=== PATIENT | male | born 1975 | race Caucasian/White ===

== ENCOUNTER 2018-09-19 10:39 | Day surgery (SDC) | payer BC ==
[2018-09-18 11:20] VITALS: BMI 29.9
[~2018-09-19 10:39] MED LIST: LACTATED RINGERS 1,000 ML IV SCH; LIDOCAINE 1% 20 ML VIAL (10MG/ML) FOR IV START INTRADERMA PRN
[2018-09-19 11:06] VITALS: TEMP 97.6
[2018-09-19] MEDS ORDERED: PROPOFOL 10 MG/ML 20 ML VIAL IV ONE (11:52)
[2018-09-19] MEDS ORDERED: LIDOCAINE 1% INJ 10MG/ML (20 ML MDV) ONE (11:52)
[2018-09-19] MEDS ORDERED: fentaNYL (PF) 50 MCG/ML 2 ML AMP ONE (11:52)
--- NOTE | 2018-09-19 12:25 | P.PCN ---
Date of Procedure: 09/19/18 Description of Procedure: BRIEF HISTORY: 42-year-old male who presents for outpatient EGD. Previously seen in the office the patient was reporting intermittent episodes of dysphagia. The patient has reported intermittent episodes of solid food dysphagia over the past few years which she feels improved when he chews his food more thoroughly. No episodes of esophageal foreign body. He had been on Protonix daily. No reported reflux, throat clearing or sore taste in mouth. No history of ALLERGIES. No history of asthma. No nausea or vomiting or familial history of esophageal malignancy. No hematochezia or melena and he reports 2-3 formed bowel movements daily. The patient had an x-ray esophagram which was significant for a hiatal hernia and slight presbyesophagus. PROCEDURE PERFORMED: Esophagogastroduodenoscopy with biopsy. PREOPERATIVE DIAGNOSIS: Esophageal dysphagia. ESTIMATED BLOOD LOSS: Minimal. IV sedation per anesthesia. PROCEDURE: After informed consent was obtained, the patient was brought into the endoscopy unit. IV sedation was administered by Anesthesia under continuous monitoring. Initially the Olympus GIF-190 video endoscope was inserted into the mouth. Esophagus intubated without any difficulty. It was gradually advanced into the stomach and duodenum and carefully examined. The bulb and the second part of the duodenum appeared normal, with biopsies taken. The scope at this time was withdrawn to the stomach, adequately insufflated with air, and upon careful examination, mucosa of the antrum, body, cardia and the fundus appeared normal except for some mild scattered erythema in antrum and body suggestive of mild gastritis biopsies taken. The scope was then withdrawn into the esophagus. The GE junction was located at 45 cm from the incisors. The esophagus appeared grossly normal with no strictures or masses there was some mild LA grade a esophagitis in the distal esophagus with the GE junction biopsied. patient tolerated the procedure well. IMPRESSION: 1. Mild gastritis antrum body, biopsied. 2. LA grade a esophagitis, GE junction biopsy. 3. Duodenal biopsies. RECOMMENDATIONS: The findings of this examination were discussed with the patient and his . Will recommend omeprazole 20 mg twice a day. Consideration for hyoscyamine sublingual as needed for symptoms. Patient scheduled for follow-up at which time we'll discuss possible esophageal manometry for further evaluation of symptoms have persisted.
[2018-09-19 12:26] VITALS: RESP 18
[2018-09-19 12:43] VITALS: BP 129/83; PULSE 68
== END 2018-09-19 13:11 | disposition home or self-care (01) ==
LOC: ORWHC2ENDO 10:39
PROVIDERS: ATTEND Internal Medicine
DX: K20.9 Esophagitis, unspecified (principal); K29.50 Unspecified chronic gastritis without bleeding; G47.33 Obstructive sleep apnea (adult) (pediatric); Z87.891 Personal history of nicotine dependence
CPT/HCPCS: 43239; 88305; J2001; J3010; J2704

== ENCOUNTER 2023-04-27 09:35 | Day surgery (SDC) | payer BC ==
[2023-04-25 14:48] VITALS: BMI 29.9
[~2023-04-27 09:35] MED LIST changes: -LACTATED RINGERS 1,000 ML IV SCH; +LIDOCAINE 1% (10MG/ML) FOR IV START INTRADERMA PRN; -LIDOCAINE 1% 20 ML VIAL (10MG/ML) FOR IV START INTRADERMA PRN; +ONDANSETRON 4 MG/2 ML VIAL IVP PRN
[2023-04-27] MEDS: LACTATED RINGERS 1,000 ML IV SCH (10:20)
[2023-04-27 10:25] VITALS: TEMP 97
[2023-04-27] MEDS ORDERED: LIDOCAINE 1% INJ 10MG/ML (20 ML MDV) ONE (10:36)
[2023-04-27] MEDS ORDERED: PROPOFOL 10 MG/ML 20 ML VIAL IV ONE (10:36)
--- NOTE | 2023-04-27 10:50 | P.PCN ---
Date of Procedure: 04/27/23 Procedure(s) Performed: BRIEF HISTORY: Patient is a 47-year-old pleasant white male scheduled for an elective colonoscopy as a part of screening for colon cancer. PROCEDURE PERFORMED: Colonoscopy with snare polypectomy PREOPERATIVE DIAGNOSIS: Screening for colon cancer. IV sedation per Anesthesia. PROCEDURE: After informed consent was obtained, the patient, was brought into the endoscopy unit. IV sedation was administered by Anesthesia under continuous monitoring. Digital rectal examination was normal. Initially the Olympus CF-160 flexible video colonoscope was then inserted in the rectum, gradually advanced into the cecum without any difficulty. Careful examination was performed as the scope was gradually being withdrawn. Ileocecal valve and the appendiceal orifice were visualized and appeared normal. Prep was excellent. Mucosa of the cecum, ascending colon, appeared normal. In the hepatic flexure there was a 7-8 mm polyp that was removed by snare polypectomy. Rest of thetransverse colon, descending colon, sigmoid colon, and rectum appeared normal. Retroflexion was performed in the rectum and no lesions were seen. The patient tolerated the procedure well. IMPRESSION: 7-8 mm hepatic lesion polyp status post snare polypectomy Rest of the colon appeared normal RECOMMENDATIONS: Findings of this examination were discussed with the patient as well as his family. He was advised to follow with the biopsy results. If the biopsy results adenoma he can have a repeat colonoscopy in 5 years.
[2023-04-27 11:29] VITALS: BP 128/71; PULSE 78; RESP 18
== END 2023-04-27 11:27 | disposition home or self-care (01) ==
LOC: ORWHC2ENDO 09:35
PROVIDERS: ATTEND Internal Medicine Gastroenterology
DX: Z12.11 Encounter for screening for malignant neoplasm of colon (principal); K63.5 Polyp of colon; J45.909 Unspecified asthma, uncomplicated; G47.33 Obstructive sleep apnea (adult) (pediatric); Z79.51 Long term (current) use of inhaled steroids; Z79.899 Other long term (current) drug therapy
CPT/HCPCS: 45385; J2001; J2704; 88305